=== PATIENT | male | born 1995 | race African-American/Black ===

== ENCOUNTER 2023-06-06 03:30 | Emergency (ER) | payer BC ==
[~2023-06-06] VITALS: Ht 177.8 cm; Wt 72.0 kg
[2023-06-06 03:54] VITALS: O2SAT 98
[2023-06-06 10:07] LABS: BASOPHILS % 0.7 % (0.0-2.0); EOSINOPHILS % 0.7 % (0.0-5.0); HEMATOCRIT. 41.7 % (42.0-52.0); HEMOGLOBIN. 13.8 g/dL (14.0-18.0); LYMPHOCYTES % 40.1 % (20.0-50.0); MEAN CORPUSCULAR HEMOGLOBIN 28.2 pg (28.0-32.0); MEAN CORPUSCULAR VOLUME 85.4 fL (80.0-94.0); MEAN PLATELET VOLUME 8.6 fl (7.4-10.4); MONOCYTES % 13.7 % (2.0-8.0); NEUTROPHILS % 44.8 % (40.0-76.0); PLATELET 260 x1000/uL (130-400); RED BLOOD CELL COUNT 4.89 mill/uL (4.7-6.1); RED CELL DISTRIBUTION WIDTH 13.7 % (11.6-14.6)
[2023-06-06 10:25] LABS: ALANINE AMINOTRANSFERASE 14 IU/L (10-49); ALBUMIN 4.6 g/dL (3.2-4.8); ASPARTATE AMINOTRANSFERASE 26 IU/L (<34); BILIRUBIN TOTAL 1.8 mg/dL (0.1-1.0); CALCIUM 9.3 mg/dL (8.7-10.4); CARBON DIOXIDE 29 mEq/L (21-32); CHLORIDE 105 mEq/L (98-107); CREATININE 0.9 mg/dL (0.6-1.3); GLUCOSE 93 mg/dL (70-105); POTASSIUM 3.6 mEq/L (3.5-5.1); SODIUM 140 mEq/L (136-145); UREA NITROGEN BLOOD 10 mg/dL (9-23)
[2023-06-06 10:54] VITALS: BP 133/80; PULSE 77; RESP 18; TEMP 97.7
[2023-06-06 12:09] LABS: CLARITY URINE CLEAR (CLEAR); COLOR URINE YELLOW (YELLOW); GLUCOSE URINE NEGATIVE (NEGATIVE); KETONES URINE NEGATIVE (NEGATIVE); LEUKOCYTE ESTERASE URINE NEGATIVE (NEGATIVE); NITRITE URINE NEGATIVE (NEGATIVE); OCCULT BLOOD URINE NEGATIVE (NEGATIVE); PROTEIN URINE TRACE (NEGATIVE)
[2023-06-06 12:44] LABS: MUCUS URINE 1+ /lpf (NONE/TRACE)
[2023-06-06 12:46] LABS: BACTERIA URINE TRACE; RBC URINE NONE SEEN /hpf (0-2); SQUAMOUS EPITHELIAL CELL URINE RARE /lpf (RARE/1+); WBC URINE 0-2 /hpf (0-2)
[2023-06-09 09:12] LABS: CHLAMYDIA TRACHOMATIS NAA Negative (Negative); NEISSERIA GONORRHOEAE NAA Negative (Negative)
== END 2023-06-06 11:10 | disposition home or self-care (01) ==
LOC: ER 03:37
DX: N48.89 Other specified disorders of penis (principal)
CPT/HCPCS: 36415; 80053; 81003; 85025; 86592; 87491; 87591; 99283

== ENCOUNTER 2024-01-17 19:35 | Emergency (ER) | payer SELFPAY ==
[~2024-01-17] VITALS: Ht 170.2 cm; Wt 65.0 kg
[2024-01-17 20:19] VITALS: O2SAT 100
[2024-01-17] MEDS ORDERED: ONDANSETRON 4MG ODT PO ONE (20:30)
[2024-01-17 21:20] LABS: BASOPHILS % 0.9 % (0.0-2.0); DIFFERENTIAL COMMENT 0; EOSINOPHILS % 7.6 % (0.0-5.0); HEMATOCRIT. 41.3 % (42.0-52.0); HEMOGLOBIN. 13.4 g/dL (14.0-18.0); LYMPHOCYTES % 43.8 % (20.0-50.0); MEAN CORPUSCULAR HEMOGLOBIN 27.6 pg (28.0-32.0); MEAN CORPUSCULAR HGB CONC 32.4 g/dL (31.0-37.0); MEAN CORPUSCULAR VOLUME 85.2 fL (80.0-94.0); MEAN PLATELET VOLUME 8.9 fl (7.4-10.4); MONOCYTES % 13.7 % (2.0-8.0); PLATELET 232 x1000/uL (130-400); RED BLOOD CELL COUNT 4.84 mill/uL (4.7-6.1); RED CELL DISTRIBUTION WIDTH 13.2 % (11.6-14.6); WHITE BLOOD COUNT 4.4 x1000/uL (4.5-11.0)
[2024-01-17 21:25] LABS: CHLORIDE 103 mEq/L (98-107); POTASSIUM 3.5 mEq/L (3.5-5.1); SODIUM 139 mEq/L (136-145)
[2024-01-17 21:26] LABS: CARBON DIOXIDE 30 mEq/L (21-32)
[2024-01-17 21:27] LABS: CALCIUM 9.6 mg/dL (8.7-10.4)
[2024-01-17 21:31] LABS: GLUCOSE 88 mg/dL (70-105); TROPONIN I HIGH SENSITIVITY 4 ng/L (3.0-53); UREA NITROGEN BLOOD 12 mg/dL (9-23)
[2024-01-17] MEDS ORDERED: HYDR453.3 TP (23:50)
[2024-01-18 00:15] VITALS: BP 115/72; PULSE 85; RESP 17; TEMP 36.94740; O2SAT 100
[2024-01-18] MEDS: ONDANSETRON 4MG ODT PO NR (00:30)
== END 2024-01-18 00:24 | disposition home or self-care (01) ==
LOC: ER 19:35
DX: R11.2 Nausea with vomiting, unspecified (principal)
CPT/HCPCS: 99283; 80048; 85025; 84484; 36415; Q0162